=== PATIENT | female | born 2000 | race Caucasian/White ===

== ENCOUNTER 2021-07-02 09:17 | Outpatient (CLI) | payer OTHER | END 2021-07-02 09:18 | disposition home or self-care (01) | LOC: CSHNM 09:17 | PROVIDERS: ATTEND Internal Medicine Gastroenterology | DX: R11.0 Nausea (principal); R10.9 Unspecified abdominal pain | CPT/HCPCS: 78227; A9537 ==

== ENCOUNTER 2022-01-03 08:52 | Outpatient (CLI) | payer OTHER | END 2022-01-03 08:53 | disposition home or self-care (01) | LOC: CSHULT 08:52 | PROVIDERS: ATTEND Physician Assistant Medical | DX: R10.9 Unspecified abdominal pain (principal); D50.9 Iron deficiency anemia, unspecified; R63.4 Abnormal weight loss; K82.4 Cholesterolosis of gallbladder; N28.1 Cyst of kidney, acquired | CPT/HCPCS: 76705 ==

== ENCOUNTER 2023-10-03 11:04 | Outpatient (CLI) | payer OTHER | END 2023-10-03 11:05 | disposition home or self-care (01) | LOC: CSHULT 11:04 | PROVIDERS: ATTEND Advanced Practice Midwife | DX: N92.1 Excessive and frequent menstruation with irregular cycle (principal) | CPT/HCPCS: 76856 ==

== ENCOUNTER 2024-05-06 12:56 | Outpatient (CLI) | payer OTHER | END 2024-05-06 12:57 | disposition home or self-care (01) | LOC: CSHRAD 12:56 | PROVIDERS: ATTEND Family Medicine | DX: J94.9 Pleural condition, unspecified (principal) | CPT/HCPCS: 71046 ==